=== PATIENT | female | born 1995 | race Caucasian/White ===

== ENCOUNTER → 2024-10-16 09:05 | Outpatient (REF) | payer OTHER, SELFPAY | LOC: PNTC 09:05 | PROVIDERS: ATTENDING PHYSICIAN Obstetrics & Gynecology | DX: Z34.00 Encounter for supervision of normal first pregnancy, unspecified trimester (principal); O35.5XX0 Maternal care for (suspected) damage to fetus by drugs, not applicable or unspecified | CPT/HCPCS: 76811; 76817 ==

== ENCOUNTER 2025-02-15 19:03 | Inpatient (IN) | payer OTHER, SELFPAY ==
[2025-02-15 19:21] VITALS: BP 140/87; BMI 26.6
[2025-02-15] MEDS: PENICILLIN 110 UNITS IV (19:58)
[2025-02-15 20:02] LABS: Hematocrit 33.1 % (37.0-47.0); Hemoglobin 10.5 g/dL (12.0-16.0); Mean Corp Hgb Conc. 31.7 g/dL (33.0-37.0); Mean Corpuscular Volume 82.8 fL (81.0-99.0); Nucleated Red Blood Cells % 0 %; Platelet Count 274 10^3/uL (130-400); Red Cell Dist. Width 16.0 % (11.5-14.5)
[2025-02-15] MEDS: ZOFRAN 4 MG IV (20:20)
[2025-02-15] MEDS: FENTANYL/BUPIVACAINE 100 EPIDURAL (20:23)
[2025-02-15] MEDS: SUBLIMAZE 100 MCG EPIDURAL (20:23)
[2025-02-15 20:47] LABS: ALT (SGPT) 39 U/L (0-35); AST (SGOT) 46 U/L (14-36); Albumin 3.6 g/dl (3.5-5.0); Alkaline Phosphatase 289 U/L (38-126); Blood Urea Nitrogen 4 mg/dl (7-17); Calcium 8.6 mg/dl (8.4-10.2); Carbon Dioxide 19 mmol/L (22-30); Chloride 108 mmol/L (98-107); Estimated Creatinine Clearance 119 ml/min; Glucose 67 mg/dl (70-99); Potassium 3.6 mmol/L (3.5-5.1); Sodium 135 mmol/L (135-145); Total Protein 6.6 g/dl (6.3-8.2); eGFR > 60.00
[2025-02-15] MEDS: LR 1000 IV (22:02)
[2025-02-15] MEDS: PENICILLIN 55 UNITS IV (23:58)
[2025-02-16] MEDS: LR 1000 IV ×3 (00:52→09:05)
[2025-02-16] MEDS: PENICILLIN 55 UNITS IV ×2 (04:10→07:58)
[2025-02-16] MEDS: FENTANYL/BUPIVACAINE 100 EPIDURAL (04:37)
[2025-02-16] MEDS: ZOFRAN 4 MG IV (04:56)
[2025-02-16 08:31] LABS: Hematocrit 31.2 % (37.0-47.0); Hemoglobin 9.8 g/dL (12.0-16.0); Mean Corp Hgb Conc. 31.4 g/dL (33.0-37.0); Mean Corpuscular Volume 85.0 fL (81.0-99.0); Platelet Count 262 10^3/uL (130-400); Red Cell Dist. Width 16.4 % (11.5-14.5)
[2025-02-16] MEDS: PITOCIN 30 UNITS/NSS 500 ML IV (08:31)
[2025-02-16 08:43] LABS: ALT (SGPT) 31 U/L (0-35); AST (SGOT) 31 U/L (14-36); Albumin 3.1 g/dl (3.5-5.0); Alkaline Phosphatase 256 U/L (38-126); Blood Urea Nitrogen 4 mg/dl (7-17); Calcium 8.2 mg/dl (8.4-10.2); Carbon Dioxide 21 mmol/L (22-30); Chloride 108 mmol/L (98-107); Estimated Creatinine Clearance 102 ml/min; Glucose 68 mg/dl (70-99); Potassium 3.6 mmol/L (3.5-5.1); Sodium 133 mmol/L (135-145); Total Protein 5.8 g/dl (6.3-8.2); eGFR > 60.00
[2025-02-16] MEDS: WELLBUTRIN XL (24 hour extended release) PO (09:14)
[2025-02-16] MEDS: ZOLOFT PO (09:14)
[2025-02-16] MEDS: PRENATAL PLUS PO (09:14)
[2025-02-16] MEDS: GENTAMICIN 58.75 MG IV (09:37)
[2025-02-16] MEDS: AMPICILLIN 108 MG IV ×2 (09:50→15:54)
[2025-02-16] MEDS: TRANEXAMIC ACID 100 IV (11:00)
[2025-02-16] MEDS: CYTOTEC 800 MCG SL (11:01)
[2025-02-16] MEDS: TYLENOL 650 MG PO (20:01)
[2025-02-16] MEDS: MOTRIN 600 MG PO (20:01)
[2025-02-16] MEDS: COLACE 100 MG PO (20:02)
[2025-02-17 04:48] LABS: Hematocrit 30.7 % (37.0-47.0); Hemoglobin 10.0 g/dL (12.0-16.0)
[2025-02-17] MEDS: MOTRIN 600 MG PO ×2 (04:54→16:38)
[2025-02-17] MEDS: TYLENOL 650 MG PO ×2 (04:54→16:37)
[2025-02-17] MEDS: COLACE 100 MG PO ×2 (07:55→20:38)
[2025-02-17] MEDS: WELLBUTRIN XL (24 hour extended release) 300 MG PO (07:55)
[2025-02-17] MEDS: ZOLOFT 50 MG PO (07:55)
[2025-02-17] MEDS: PRENATAL PLUS 1 TABLET PO (07:55)
[2025-02-17] MEDS: FEOSOL 325 MG PO (07:55)
[2025-02-17] MEDS: GENTAMICIN 58.75 MG IV (08:36)
[2025-02-18] MEDS: TYLENOL 650 MG PO (00:35)
[2025-02-18] MEDS: MOTRIN 600 MG PO (00:35)
[2025-02-18] MEDS: WELLBUTRIN XL (24 hour extended release) 300 MG PO (08:25)
[2025-02-18] MEDS: ZOLOFT 50 MG PO (08:25)
[2025-02-18] MEDS: PRENATAL PLUS 1 TABLET PO (08:25)
[2025-02-18] MEDS: COLACE 100 MG PO (08:26)
[2025-02-20 13:34] LABS: Syphilis/T. pallidum Ab Reflex Negative (Negative)
== END 2025-02-18 12:20 | disposition home or self-care (01) | DRG 807 ==
LOC: LDRP 19:03
PROVIDERS: Student in an Organized Health Care Education/Training Program; ADMITTING PHYSICIAN Obstetrics & Gynecology
PROC: 10E0XZZ Delivery of Products of Conception, External Approach (ICD-10-PCS; 2025-02-16)
PROC: 0KQM0ZZ Repair Perineum Muscle, Open Approach (ICD-10-PCS; 2025-02-16)
PROC: 0UQMXZZ Repair Vulva, External Approach (ICD-10-PCS; 2025-02-16)
DX: O77.0 Labor and delivery complicated by meconium in amniotic fluid (principal); Z37.0 Single live birth; O76 Abnormality in fetal heart rate and rhythm complicating labor and delivery; Z3A.39 39 weeks gestation of pregnancy; O70.0 First degree perineal laceration during delivery; O99.824 Streptococcus B carrier state complicating childbirth
CPT/HCPCS: 36415; 80053; 85014; 85018; 85025; 85027; 86780; 86850; 86900; 86901; 87070; 88307